=== PATIENT | male | born 1990 | race Caucasian/White ===

== ENCOUNTER 2019-02-16 09:43 | Emergency (ER) | payer BC, OTHER ==
[2019-02-16 10:23] VITALS: BP 133/67
--- NOTE | 2019-02-16 10:49 | UC ---
Throat Pain/Nasal Femi HPI - HPI Summary HPI Summary: 1.nasal congestion x 1 day sinus pain and pressure , pnd, no sore throat, no fever, no chills, no cough 2. abdominal pain for months, pain is lower / mid abdominal wall pain is only in the morning , tightness feeling in the umbilical area concern about umbilical hernia - History of Current Complaint Chief Complaint: UCRespiratory Stated Complaint: CONGESTION COUGH SORE THROAT Time Seen by Provider: 02/16/19 10:19 Hx Obtained From: Patient Onset/Duration: Gradual Onset, Lasting Days - 1, Still Present Severity: Mild Pain Intensity: 3 Pain Scale Used: 0-10 Numeric Cough: Nonproductive Associated Signs & Symptoms: Positive: Sinus Discomfort, Nasal Discharge. Negative: Wheezing, Hoarseness, Fever, Vomiting, Rash - Allergies/Home Medications Allergies/Adverse Reactions: Allergies Allergy/AdvReac Type Severity Reaction Status Date / Time No Known Allergies Allergy Verified 02/16/19 10:17 Home Medications: Home Medications NK [No Home Medications Reported] 02/16/19 [History Confirmed 02/16/19] PMH/Surg Hx/FS Hx/Imm Hx Previously Healthy: Yes - Surgical History Surgical History: Yes Surgery Procedure, Year, and Place: RIGHT knee. RIGHT shoulder - Family History Known Family History: Negative: Diabetes - Social History Alcohol Use: Weekly Substance Use Type: None Smoking Status (MU): Never Smoked Tobacco Type: Smokeless Tobacco Review of Systems All Other Systems Reviewed And Are Negative: Yes Constitutional: Positive: Negative Skin: Positive: Negative Eyes: Positive: Negative ENT: Positive: Nasal Discharge, Sinus Congestion Respiratory: Positive: Cough Cardiovascular: Positive: Negative Gastrointestinal: Positive: Abdominal Pain Is Patient Immunocompromised?: No Physical Exam Triage Information Reviewed: Yes Appearance: Well-Appearing, No Pain Distress, Well-Nourished Vital Signs: Initial Vital Signs Temp 98.9 F 02/16/19 10:17 Pulse 85 02/16/19 10:17 Resp 16 02/16/19 10:17 BP 133/67 02/16/19 10:17 Pulse Ox 99 02/16/19 10:17 Vital Signs Reviewed: Yes Eye Exam: Normal Eyes: Positive: Conjunctiva Clear ENT: Positive: Normal ENT inspection, Hearing grossly normal, Pharynx normal Neck: Positive: Supple, Nontender, No Lymphadenopathy Respiratory: Positive: Chest non-tender, Lungs clear, Normal breath sounds Cardiovascular: Positive: RRR, No Murmur Abdominal Exam: Normal Abdomen Description: Positive: Nontender, Soft. Negative: CVA Tenderness (R), CVA Tenderness (L), Distended, Guarding Bowel Sounds: Positive: Present Throat Pain/Nasal Course/Dx - Differential Dx/Diagnosis Provider Diagnosis: URI (upper respiratory infection), Abdominal pain Discharge ED - Sign-Out/Discharge Documenting (check all that apply): Patient Departure All imaging exams completed and their final reports reviewed: No Studies - Discharge Plan Condition: Stable Disposition: HOME Patient Education Materials: Upper Respiratory Infection (DC) Referrals: Lucita Lovelace [Primary Care Provider] - If Needed Additional Instructions: no signs or symptoms of sinus infection symptoms cw with uri may try otc meds / mucinex / flonase normal abdominal exam , hernia noted follow up with your pcp - Billing Disposition and Condition Condition: STABLE Disposition: Home
== END 2019-02-16 10:44 | disposition home or self-care (01) ==
LOC: UCCORT 09:43
DX: J06.9 Acute upper respiratory infection, unspecified (principal); R10.9 Unspecified abdominal pain
CPT/HCPCS: 99202; G0463